=== PATIENT | male | born 2000 | race Caucasian/White ===

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

== ENCOUNTER 2022-07-26 10:41 | Emergency (ER) | payer OTHER, SELFPAY ==
--- NOTE | ~2022-07-26 | XR_ITS ---
EXAMINATION: X-RAY RIGHT WRIST X-RAY RIGHT FOREARM CLINICAL INFORMATION: Pain COMPARISON: None TECHNIQUE: Right wrist 5 views. Right forearm 2 views. FINDINGS: Right wrist: Question tiny 1.5 mm ossification adjacent to the proximal medial aspect of the lunate, only visualized on one view. (Image 5). This could represent a small avulsion fracture or dystrophic changes. Ulna negative variance. No acute fracture or dislocation is otherwise seen. No discrete scaphoid fracture is seen. Joint spaces are maintained. Carpal alignment is maintained. Right forearm: No acute fracture or malalignment is seen of the radius or ulna. Articulation at the elbow and wrist joint is maintained. No abnormal soft tissue calcification. XR/XR forearm RT 2V IMPRESSION: 1. Tiny 1.5 mm ossific density adjacent to the proximal lunate, of uncertain clinical significance. This could represent a small avulsed fracture fragment versus dystrophic changes. 2. No radiographically evident acute fracture or dislocation otherwise in the right wrist. 3. No radiographically evident acute fracture or malalignment of the radius and ulna.
--- NOTE | ~2022-07-26 | XR_ITS ---
EXAMINATION: X-RAY RIGHT WRIST X-RAY RIGHT FOREARM CLINICAL INFORMATION: Pain COMPARISON: None TECHNIQUE: Right wrist 5 views. Right forearm 2 views. FINDINGS: Right wrist: Question tiny 1.5 mm ossification adjacent to the proximal medial aspect of the lunate, only visualized on one view. (Image 5). This could represent a small avulsion fracture or dystrophic changes. Ulna negative variance. No acute fracture or dislocation is otherwise seen. No discrete scaphoid fracture is seen. Joint spaces are maintained. Carpal alignment is maintained. Right forearm: No acute fracture or malalignment is seen of the radius or ulna. Articulation at the elbow and wrist joint is maintained. No abnormal soft tissue calcification. XR/XR wrist RT min 3V IMPRESSION: 1. Tiny 1.5 mm ossific density adjacent to the proximal lunate, of uncertain clinical significance. This could represent a small avulsed fracture fragment versus dystrophic changes. 2. No radiographically evident acute fracture or dislocation otherwise in the right wrist. 3. No radiographically evident acute fracture or malalignment of the radius and ulna.
[2022-07-26 10:47] VITALS: BP 112/63; PULSE 69; RESP 18; TEMP 36.8; O2SAT 96; BMI 31.5
--- NOTE | 2022-07-26 11:18 | ED.EXTPRO ---
HPI - Extremity Problem General Chief complaint: Extremity Injury, Upper Stated complaint: R arm inj 07/25/22 Time Seen by Provider: 07/26/22 11:14 Source: patient Mode of arrival: ambulatory History of Present Illness HPI Narrative: 22-year-old male with no significant past medical history presenting to the ED complaining of right forearm pain s/p falling of snow board last night. Denies head trauma or LOC. Denies numbness, tingling, weakness MD Complaint: extremity pain Onset (ago): hour(s) Related Data Home Medications Medication Instructions Recorded Confirmed No Known Home Meds 05/13/21 05/13/21 Allergies Allergy/AdvReac Type Severity Reaction Status Date / Time No Known Allergies Allergy Verified 07/26/22 10:49 [No Known Allergies*] Review of Systems Review of Systems: Constitutional: No Fever, No Chills ENT/Mouth: No Ear Pain, No Nasal Congestion, No sore throat, No Rhinorrhea, No Swallowing Difficulty Cardiovascular: No Chest Pain, No SOB Respiratory: No Cough Gastrointestinal: No Nausea, No Vomiting, No Diarrhea, No Constipation, No Abdominal pain Musculoskeletal: + joint pain, No Myalgias, No Joint Swelling Skin: No Skin Lesions, No rash Neuro: No Weakness, No Numbness, No Paresthesias Yes all other systems are reviewed and are negative Constitutional: Constitutional: Reports as per [facility] Past Medical History Attestation statement: The following information was validated with the patient. Social History Social History Patient Tobacco Use Status: Never used Tobacco Smoked in Last 30 Days: No Advance Directives: No Advance Directives Information Provided: No Physical Exam Vital Signs: Vital Signs: Last Vital Signs Temp 98.3 F 07/26/22 10:47 Pulse 69 07/26/22 10:47 Resp 18 07/26/22 10:47 BP 112/63 07/26/22 10:47 Pulse Ox 96 07/26/22 10:47 O2 Del Method 07/26/22 10:47 BMI result Body Mass Index 31.5 Const: General: cooperative, healthy appearing and no acute distress Orientation/consciousness: patient oriented x3 Limitations: no limitations HEENT: Head: Yes normal to inspection and Yes atraumatic Ears: hearing grossly normal bilaterally General nose exam: Normal external nose present Face and sinus: Yes normal facial exam Eyes: General: appearance normal, both eyes and all related structures EOM: EOMs intact bilaterally Neck: Neck: Yes normal visual inspection and Yes no meningeal signs Resp: Effort & Inspection: normal respiratory effort and no respiratory distress Cardio: Rate: regular rate Peripheral pulses: radial pulses present and ulnar radial pulses present Skin: Rashes: no rashes Wounds: no wounds Neuro: General: patient oriented x3, tone normal and no meningeal signs Gait exam (Neuro): Normal gait present Extrem: Other: +right mid-forearm with ttp, no appreciable deformity. Elbow, wrist and hand nontender. FROM intact, supination/pronation intact. sensation intact to light touch General: Yes normal to inspection Course Course Course Narrative: XR forearm RT 2V/XR wrist RT min 3V IMPRESSION: 1. Tiny 1.5 mm ossific density adjacent to the proximal lunate, of uncertain clinical significance. This could represent a small avulsed fracture fragment versus dystrophic changes. ? 2. No radiographically evident acute fracture or dislocation otherwise in the right wrist. ? 3. No radiographically evident acute fracture or malalignment of the radius and ulna. > Results discussed with patient including worrisome signs and symptoms and strict return precautions, and when to return to the emergency department. They verbalized understanding and feel safe for discharge at this time. Medical Decision Making Medical Decision Making MDM Narrative: 22-year-old male with no significant past medical history presenting to the ED complaining of right forearm pain s/p falling of snow board last night. On exam vital signs stable, NAD, nontoxic appearing, right forearm with noted tenderness, no appreciable deformity/erythema, crepitus. Full range of motion intact. Neurovascular intact distally. Concern for sprain versus fracture. No evidence of infection, low suspicion for septic joint. Plan: X-rays, re-evaluate Differential Diagnosis Differential Diagnoses: The differential diagnosis associated with the presentation includes as above Independent Interpretation I performed an independent interpretation of an: Plain X-Ray Radiology Impression Discussion of test interpretation with radiology: I have reviewed the radiologist's reading. Prescription Management I considered prescription management with: Pain Medication Discharge Plan Discharge Clinical Impression: Forearm injury Patient Disposition: Home, Self-Care Instructions: Sprain (ED) Additional Instructions: Your x-ray does not show any acute fractures/break. Ice and elevate. Take Tylenol and Motrin. Rest. Have close follow-up with your doctor If symptoms persist or worsen return to the emergency department Prescriptions: No Action No Known Home Meds Referrals: Lenard Moon MD [Primary Care Provider] - 5 days Interventions: ED Discharge Assessment Last Done: 07/26/22 12:26 Discharge Date/Time: 07/26/22 12:26
== END 2022-07-26 12:26 | disposition home or self-care (01) ==
PROVIDERS: Emergency Provider Emergency Medicine; PCP Pediatrics
DX: S59.911A Unspecified injury of right forearm, initial encounter (principal); M25.531 Pain in right wrist; V00.311A Fall from snowboard, initial encounter; Y93.9 Activity, unspecified; Y92.9 Unspecified place or not applicable; Y99.9 Unspecified external cause status
CPT/HCPCS: 73090; 73110; 99283

== ENCOUNTER 2025-02-07 13:00 | Outpatient (RCR) | payer OTHER, SELFPAY | END 2025-02-07 14:28 | disposition home or self-care (01) | LOC: HO.PT 13:00 | PROVIDERS: PCP Pediatrics; Visit Provider Orthopaedic Surgery | DX: M24.111 Other articular cartilage disorders, right shoulder (principal) | CPT/HCPCS: 97110; 97140; 97161; 97530 ==